=== PATIENT | male | born 1995 | race African-American/Black ===

== ENCOUNTER 2017-01-31 22:54 | Inpatient (IN) | payer MEDICAID ==
[~2017-01-31] VITALS: Ht 172.7 cm; Wt 70.2 kg
[2017-01-31 22:55] VITALS: O2SAT 100
[2017-01-31] MEDS ORDERED: ceFAZolin 2 GM PREMIX 50 ML ONE (22:58)
[2017-01-31] MEDS ORDERED: MORPHINE SULFATE 8 MG/ML INJ ONE (22:58)
[2017-01-31] MEDS ORDERED: DIPHTH/TETANUS/ACEL PERTUSSIS (BOOSTER) 0.5 ML VIAL/PFS IM ONE (22:58)
[2017-01-31] MEDS ORDERED: PROPOFOL 200 MG/20 ML AMP ONE (23:01)
[2017-01-31] MEDS ORDERED: GENTAMICIN 80 MG PREMIX 100 ML ONE (23:13)
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
[2017-01-31 23:29] LABS: AUTOMATED NEUTROPHIL # 3.7 TH/MM3 (1.8-7.7); BASOPHIL # 0.1 TH/MM3 (0-0.2); BASOPHIL % 0.6 % (0.0-2.0); EOSINOPHIL # 0.2 TH/MM3 (0-0.4); EOSINOPHIL % 1.8 % (0.0-4.0); HEMATOCRIT 43.8 % (39.0-51.0); LYMPH % 55.6 % (9.0-44.0); LYMPHOCYTE # 5.8 TH/MM3 (1.0-4.8); MEAN CORPUSCULAR HGB CONC 33.3 % (32.0-36.0); MONO % 6.7 % (0.0-8.0); NEUT % 35.3 % (16.0-70.0); PLATELET COUNT 296 TH/MM3 (150-450); RED BLOOD COUNT 4.43 MIL/MM3 (4.50-5.90); RED CELL DISTRIBUTION WIDTH 12.5 % (11.6-17.2); WHITE BLOOD COUNT 10.4 TH/MM3 (4.0-11.0)
[2017-01-31 23:30] LABS: HEMO FLAGS AUTO DIFF
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
--- NOTE | 2017-01-31 23:36 | RADRPT ---
EXAM DATE/TIME: 01/31/2017 23:08 [facility] COMPARISON: FEMUR RIGHT (1 VW), January 31, 2017, 23:08. INDICATIONS : Post reduction. MEDICAL HISTORY : None. SURGICAL HISTORY : None. ENCOUNTER: Initial ACUITY: 1 day PAIN SCORE: 10/10 LOCATION: Right femur FINDINGS: A single AP view of the upper and mid right femur was obtained. The distal femur was cut off exam. Th ere is overlying artifact. Again noted is an oblique right intertrochanteric fracture with displaceme nt of the distal femoral fragment approximately 5 cm medially and stable mild angulation. Multiple ad jacent metallic fragments are again noted. CONCLUSION: No significant change in the position of the fracture fragments. Rishi Leone MD on January 31, 2017 at 23:33 Board Certified Radiologist. This report was verified electronically.
[2017-01-31 23:38] LABS: APTT (PATIENT) 22.8 SEC (24.3-30.1); INTERNATIONAL NORMALIZED RATIO 1.1 RATIO; PROTHROMBIN TIME - PATIENT 11.9 SEC (9.8-11.6)
[2017-01-31] MEDS ORDERED: IOHEXOL 350 MG/ML 10 ML VIAL (for RAD DIAG) IV ONE (23:43)
[2017-01-31 23:45] VITALS: BP 213/113; PULSE 103; RESP 22; O2SAT 100
[2017-01-31] MEDS ORDERED: HYDROmorphone HCL PF 1 MG/ML VIAL IV PUSH ONE (23:45)
[2017-01-31 23:50] VITALS: O2SAT 100
[2017-01-31 23:58] LABS: EOSINOPHILS 2 % (0-4); PLASMA CELLS 1 % (0-0); POLYS (SEG NEUTROPHILS) 29 % (16-70); SCAN/DIFF FINAL DIFF MANUAL; WBC DIFF SAMPLE 100
[2017-01-31 23:59] LABS: PLATELET ESTIMATE SMEAR NORMAL (NORMAL); PLATELET MORPHOLOGY NORMAL (NORMAL)
[2017-02-01] VITALS (9 sets, daily range): BP systolic 152–187; BP diastolic 74–103; PULSE 60–108; RESP 16–22; TEMP 97.9–100; O2SAT 96–100
[2017-02-01] MEDS ORDERED: ONDANSETRON HCL 4 MG/2 ML VIAL IV PRN
[2017-02-01] MEDS ORDERED: ENALAPRILAT 1.25 MG/ML VIAL IV PRN
[2017-02-01] MEDS ORDERED: ACETAMINOPHEN/HYDROcodone 325 MG/5 MG TAB PO PRN
[2017-02-01] MEDS ORDERED: SODIUM CHLORIDE 0.9% FLUSH 10 ML FLUSH IV FLUSH PRN
[2017-02-01] MEDS ORDERED: MAGNESIUM HYDROXIDE SUSP 30 ML CUP PO PRN
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
[2017-02-01] MEDS: PANTOPRAZOLE SODIUM 40 MG VIAL IVP SCH ×2 (00:32→22:11)
[2017-02-01] MEDS: SODIUM CHLOR 0.9% 1000 ML INJ 1,000 ML IV SCH ×3 (00:32→19:26)
[2017-02-01] MEDS: HYDROmorphone HCL PF 1 MG/ML VIAL IVP PRN ×4 (00:33→22:11)
[2017-02-01] MEDS ORDERED: DIPHTH/TETANUS/ACEL PERTUSSIS (BOOSTER) 0.5 ML VIAL/PFS IM ONE (01:57)
[2017-02-01] MEDS ORDERED: ceFAZolin 2 GM PREMIX 50 ML IV STA (01:58)
[2017-02-01] MEDS ORDERED: POVIDONE IODINE 5% (ANTISEPSIS KIT) 4 APPLICATIONS EACH NARE PRN (02:00)
[2017-02-01] MEDS ORDERED: MORPHINE SULFATE 8 MG/ML INJ IV PUSH ONE (02:00)
[2017-02-01] MEDS ORDERED: SODIUM CHLORID 0.9% 500 ML IV PRN (02:00)
[2017-02-01] MEDS ORDERED: INSULIN HUMAN REGULAR 1,000 UNITS/10 ML VIAL SQ PRN (02:00)
[2017-02-01] MEDS ORDERED: CHLORHEXIDINE GLUCONATE 2 % 1 PACK (2 CLOTHS) TOPICAL PRN (02:00)
[2017-02-01] MEDS ORDERED: LACTATED RINGER'S 1000 ML IV PRN (02:00)
[2017-02-01] MEDS: ACETAMINOPHEN/HYDROcodone 325 MG/5 MG TAB PO PRN ×4 (03:41→19:39)
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
[2017-02-01 07:44] LABS: AUTOMATED NEUTROPHIL # 5.3 TH/MM3 (1.8-7.7); BASOPHIL % 0.2 % (0.0-2.0); EOSINOPHIL % 0.2 % (0.0-4.0); HEMO FLAGS DIFF FINAL; LYMPH % 20.5 % (9.0-44.0); LYMPHOCYTE # 1.6 TH/MM3 (1.0-4.8); MEAN CELL VOLUME 98.1 FL (80.0-100.0); MEAN CORPUSCULAR HEMOGLOBIN 33.3 PG (27.0-34.0); MEAN CORPUSCULAR HGB CONC 33.9 % (32.0-36.0); MONO % 11.1 % (0.0-8.0); PLATELET COUNT 211 TH/MM3 (150-450); RED BLOOD COUNT 3.57 MIL/MM3 (4.50-5.90); RED CELL DISTRIBUTION WIDTH 12.3 % (11.6-17.2); WHITE BLOOD COUNT 7.8 TH/MM3 (4.0-11.0)
[2017-02-01 07:58] LABS: ALT (GPT) 16 U/L (9-52); ANION GAP 6 MEQ/L (5-15); AST (GOT) 32 U/L (15-39); BLOOD UREA NITROGEN 8 MG/DL (7-18); CHLORIDE 113 MEQ/L (98-107); GLOMERULAR FILTRATION RATE 127 ML/MIN (>89); POTASSIUM 4.2 MEQ/L (3.5-5.1); SODIUM (NA) 144 MEQ/L (136-145)
[2017-02-01 08:00] LABS: ALKALINE PHOSPHATASE 56 U/L (45-117); TOTAL BILIRUBIN ADULT 0.8 MG/DL (0.2-1.0)
[2017-02-01] MEDS: DOCUSATE SODIUM 100 MG CAP PO SCH ×2 (08:59→19:26)
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
[2017-02-01] MEDS ORDERED: ceFAZolin 2 GM PREMIX 50 ML IV SCH (20:00)
[2017-02-01] MEDS ORDERED: VANCOMYCIN INJ 1,000 MG in SODIUM CHLOR 0.9% 250 ML INJ 250 ML IV SCH (20:00)
[2017-02-02 00:05] VITALS: BP 143/67; PULSE 76; RESP 17; TEMP 98.1; O2SAT 98
[2017-02-02 04:25] VITALS: BP 121/69; PULSE 77; RESP 17; TEMP 97.5; O2SAT 99
[2017-02-02 08:00] VITALS: BP 142/75; PULSE 96; RESP 16; TEMP 98.9; O2SAT 99
[2017-02-02] MEDS: DOCUSATE SODIUM 100 MG CAP PO SCH (09:08)
[2017-02-02] MEDS: ACETAMINOPHEN/HYDROcodone 325 MG/5 MG TAB PO PRN (09:16)
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
[2017-02-02] MEDS ORDERED: ceFAZolin INJ 1,000 MG VIAL ONE (11:54)
[2017-02-02] MEDS ORDERED: GENTAMICIN SULFATE 80 MG/2 ML VIAL ONE (11:54)
[2017-02-02] MEDS ORDERED: VANCOMYCIN HCL 1000 MG VIAL ONE (11:55)
[2017-02-02 12:00] VITALS: BP_SYST 106; BP_SYST 158; BP_DIAS 63; BP_DIAS 79; PULSE 72; PULSE 86; RESP 16; RESP 20; TEMP 96.9; TEMP 98.5; O2SAT 92; O2SAT 99
[2017-02-02] MEDS ORDERED: LACTATED RINGER'S 1000 ML INJ 2,000 ML IV ONE (12:00)
[2017-02-02] MEDS ORDERED: ACETAMINOPHEN 1000 MG/100 ML VIAL IV ONE (12:09)
[2017-02-02] MEDS ORDERED: FAMOTIDINE 20 MG/2 ML VIAL ONE (12:09)
[2017-02-02] MEDS ORDERED: MIDAZOLAM HCL 2 MG/2 ML VIAL ONE (12:10)
[2017-02-02] MEDS ORDERED: PROPOFOL 200 MG/20 ML AMP IV ONE (13:15)
[2017-02-02] MEDS ORDERED: PHENYLEPH/NS 1000 MCG/10 ML SYR IV ONE (13:15)
[2017-02-02] MEDS ORDERED: NEOSTIGMINE 3 MG/3 ML SYR IV ONE (13:15)
[2017-02-02] MEDS ORDERED: ONDANSETRON HCL 4 MG/2 ML VIAL IV PUSH ONE (13:16)
[2017-02-02] MEDS ORDERED: *MEPERIDINE 25 MG INJ VIAL PERIprocedural Use ONLY ONE (15:05)
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
[2017-02-02] MEDS ORDERED: SODIUM CHLORIDE 0.9% FLUSH 10 ML FLUSH IV FLUSH PRN (15:15)
[2017-02-02] MEDS ORDERED: Post-op Orders (for Pharmacy) MISC XX ONE (15:15)
[2017-02-02] MEDS ORDERED: ZOLPIDEM TARTRATE 5 MG TAB PO PRN (15:15)
[2017-02-02] MEDS ORDERED: oxyCODONE/ACETAMINOPHEN 5 MG/325 MG TAB PO PRN ×2 (15:15)
[2017-02-02] MEDS ORDERED: MORPHINE SULFATE 8 MG/ML INJ IV PUSH PRN (15:15)
[2017-02-02] MEDS ORDERED: PROMETHAZINE HCL 25 MG TAB PO PRN (15:15)
[2017-02-02] MEDS ORDERED: BISACODYL 10 MG SUPP RECTAL PRN (15:15)
[2017-02-02] MEDS ORDERED: PROMETHAZINE HCL 25 MG SUPP RECTAL PRN (15:15)
[2017-02-02] MEDS ORDERED: ACETAMINOPHEN 325 MG TAB PO PRN (15:15)
[2017-02-02] MEDS ORDERED: PERC5TAB12 PO (15:26)
[2017-02-02] MEDS ORDERED: *morphine SULFATE 8 MG/ML PERIprocedure ONLY ONE (15:39)
[2017-02-02] MEDS: SODIUM CHLOR 0.9% 1000 ML INJ 1,000 ML IV SCH (15:40)
[2017-02-02] MEDS ORDERED: DO NOT ADM ANY ANTICOAGULANT DRUGS PRN (15:45)
[2017-02-02] MEDS: KETOROLAC TROMETHAMINE 30 MG/ML (IVP) VIAL IVP SCH ×2 (15:50→21:28)
--- NOTE | 2017-02-02 16:37 | OTSOAPIP ---
TIME SESSION COMPLETED: TREATMENT TIME: 0 MINS. CHART REVIEWED. ATTEMPTED TO SEE FOR OT HOWEVER PT IN BUCKS TRACTION AND PENDING FURTHER INTERVENTION. WILL DEFER EVALUATION UNTIL NEXT DAY. Therapist: JAMEL MERAZ OT/L Signature on file
[2017-02-02 18:00] VITALS: BP 121/71; PULSE 91; RESP 16; TEMP 98.2; O2SAT 98
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
[2017-02-02 20:00] VITALS: BP 117/97; PULSE 72; RESP 18; TEMP 97.5; O2SAT 100
[2017-02-02] MEDS: SODIUM CHLORIDE 0.9% FLUSH 10 ML FLUSH IV FLUSH SCH (21:28)
[2017-02-03] VITALS (8 sets, daily range): BP systolic 117–144; BP diastolic 56–75; PULSE 76–99; RESP 14–18; TEMP 95.8–99.2; O2SAT 98–100
[2017-02-03] MEDS: PANTOPRAZOLE SODIUM 40 MG VIAL IVP SCH ×2 (00:30→22:51)
[2017-02-03] MEDS: VANCOMYCIN INJ 1,000 MG in SODIUM CHLOR 0.9% 250 ML INJ 250 ML IV SCH ×2 (00:30→12:45)
[2017-02-03] MEDS: SODIUM CHLOR 0.9% 1000 ML INJ 1,000 ML IV SCH (00:38)
[2017-02-03] MEDS: KETOROLAC TROMETHAMINE 30 MG/ML (IVP) VIAL IVP SCH ×4 (03:38→22:50)
[2017-02-03] MEDS: ENOXAPARIN SODIUM 30 MG/0.3 ML SYRINGE SQ SCH ×2 (03:39→15:48)
[2017-02-03 05:23] LABS: AUTOMATED NEUTROPHIL # 5.3 TH/MM3 (1.8-7.7); BASOPHIL % 0.2 % (0.0-2.0); EOSINOPHIL % 0.1 % (0.0-4.0); HEMATOCRIT 23.8 % (39.0-51.0); HEMO FLAGS DIFF FINAL; LYMPH % 14.5 % (9.0-44.0); LYMPHOCYTE # 1.1 TH/MM3 (1.0-4.8); MEAN CELL VOLUME 96.6 FL (80.0-100.0); MEAN CORPUSCULAR HEMOGLOBIN 33.3 PG (27.0-34.0); MEAN CORPUSCULAR HGB CONC 34.4 % (32.0-36.0); MONO % 12.8 % (0.0-8.0); NEUT % 72.4 % (16.0-70.0); PLATELET COUNT 184 TH/MM3 (150-450); RED BLOOD COUNT 2.46 MIL/MM3 (4.50-5.90); RED CELL DISTRIBUTION WIDTH 12.3 % (11.6-17.2); WHITE BLOOD COUNT 7.3 TH/MM3 (4.0-11.0)
[2017-02-03 06:02] LABS: ALKALINE PHOSPHATASE 45 U/L (45-117); ALT (GPT) 23 U/L (9-52); ANION GAP 9 MEQ/L (5-15); AST (GOT) 85 U/L (15-39); BICARBONATE 26.5 MEQ/L (21.0-32.0); BLOOD UREA NITROGEN 9 MG/DL (7-18); CHLORIDE 107 MEQ/L (98-107); GLOMERULAR FILTRATION RATE 147 ML/MIN (>89); POTASSIUM 3.8 MEQ/L (3.5-5.1); SODIUM (NA) 142 MEQ/L (136-145); TOTAL BILIRUBIN ADULT 0.5 MG/DL (0.2-1.0)
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
[2017-02-03] MEDS: SODIUM CHLORIDE 0.9% FLUSH 10 ML FLUSH IV FLUSH SCH ×2 (09:00→22:51)
[2017-02-03] MEDS: LACTULOSE SYRUP 20 GM/30 ML CUP PO SCH (09:31)
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
[2017-02-03] MEDS ORDERED: MILKSUS PO (11:30)
[2017-02-03] MEDS ORDERED: WALKER WHEELS/F1 MIS (11:30)
[2017-02-03] MEDS ORDERED: DOCU1CAP39 PO (11:30)
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
[2017-02-03] MEDS: DOCUSATE SODIUM 100 MG CAP PO SCH (22:49)
[2017-02-04 04:15] VITALS: BP 128/70; PULSE 99; RESP 16; TEMP 99.2; O2SAT 100
[2017-02-04] MEDS: ENOXAPARIN SODIUM 30 MG/0.3 ML SYRINGE SQ SCH ×2 (04:59→14:59)
[2017-02-04] MEDS: KETOROLAC TROMETHAMINE 30 MG/ML (IVP) VIAL IVP SCH ×2 (05:04→08:36)
[2017-02-04 06:42] LABS: MEAN CELL VOLUME 97.1 FL (80.0-100.0); MEAN CORPUSCULAR HEMOGLOBIN 32.7 PG (27.0-34.0); MEAN CORPUSCULAR HGB CONC 33.7 % (32.0-36.0); PLATELET COUNT 153 TH/MM3 (150-450); RED BLOOD COUNT 1.88 MIL/MM3 (4.50-5.90); RED CELL DISTRIBUTION WIDTH 12.5 % (11.6-17.2); WHITE BLOOD COUNT 5.4 TH/MM3 (4.0-11.0)
[2017-02-04 06:54] LABS: REVIEW FLAG FINAL
[2017-02-04 06:59] LABS: HEMATOCRIT 18.3 % (39.0-51.0)
[2017-02-04 07:08] LABS: BICARBONATE 27.4 MEQ/L (21.0-32.0); POTASSIUM 3.5 MEQ/L (3.5-5.1)
[2017-02-04 07:47] VITALS: BP 146/69; PULSE 95; RESP 18; TEMP 98.1; O2SAT 100
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
[2017-02-04] MEDS: DOCUSATE SODIUM 100 MG CAP PO SCH (08:36)
[2017-02-04] MEDS: LACTULOSE SYRUP 20 GM/30 ML CUP PO SCH (08:36)
[2017-02-04] MEDS: SODIUM CHLORIDE 0.9% FLUSH 10 ML FLUSH IV FLUSH SCH (08:36)
[2017-02-04] MEDS ORDERED: BISACODYL EC 5 MG TABEC PO ONE (08:45)
[2017-02-04] MEDS ORDERED: BISACODYL 10 MG SUPP RECTAL ONE (08:45)
[2017-02-04 09:31] LABS: HEMATOCRIT 21.5 % (39.0-51.0); REVIEW FLAG FINAL
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
[2017-02-04 12:00] VITALS: BP 125/71; PULSE 98; RESP 18; TEMP 98.1; O2SAT 100
[2017-02-04 16:00] VITALS: BP 142/71; PULSE 100; RESP 18; TEMP 99.1; O2SAT 100
== END 2017-02-04 18:33 | disposition home health service (06) | DRG 482 ==
LOC: NEPI 22:54 → EDBD 23:38 → NEDA 23:38 → N06B 02-01 01:29
PROVIDERS: ADMIT Surgery; ATTEND Surgery
PROC: 0QS6XZZ Reposition Right Upper Femur, External Approach (ICD-10-PCS; 2017-01-31)
PROC: 2W6NXZZ Traction of Right Upper Leg (ICD-10-PCS; 2017-01-31)
PROC: 0QS606Z Reposition Right Upper Femur with Intramedullary Internal Fixation Device, Open Approach (ICD-10-PCS; principal; 2017-02-02 12:42)
DX: S72.21 Displaced subtrochanteric fracture of right femur (principal); D64.9 Anemia, unspecified; X95.9XXA Assault by unspecified firearm discharge, initial encounter
CPT/HCPCS: 27502; 71010; 71260; 72170; 73501; 73551; 73552; 73701; 74177; 76000; 80048; 80053; 82435; 82565; 82947; 84132; 84295; 84520; 85007; 85014; 85018; 85025; 85027; 85610; 85730; 86850; 86900; 86901; 90471; 90715; 94150; 94667; 96365; 96375; 99152; 99291; C1713; C9113; G0390; J0131; J0690; J1170; J1580; J1650; J1885; J2175; J2250; J2270; J2370; J2405; J2710; J3010; J3370; J7030; J7050; J7120; Q9967